=== PATIENT | female | born 2000 | race Hispanic/Latino ===

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

== ENCOUNTER → 2023-02-05 | Outpatient (CLI) | payer MEDICAID | END | disposition home or self-care (01) | LOC: ICE 22:56 | PROVIDERS: ATTEND Hospitalist | DX: Z20.822 Contact with and (suspected) exposure to COVID-19 (principal) | CPT/HCPCS: 87635; C9803 ==

== ENCOUNTER 2023-03-14 04:23 | Emergency (ER) | payer MEDICAID ==
[~2023-03-14] VITALS: Ht 162.6 cm; Wt 88.5 kg
[2023-03-14 04:52] LABS: BASOPHILS % (AUTO) 0.1 % (0.0-5.0); EOSINOPHILS % (AUTO) 1.6 % (0.0-8.0); HEMATOCRIT 40.6 % (36-48); MEAN CORPUSCULAR HEMOGLOBIN 27.5 pg (27.0-33.0); MEAN CORPUSCULAR VOLUME 83.2 fL (80-100); MONOCYTES % (AUTO) 6.8 % (3.0-13.0); NEUTROPHILS % (AUTO) 66.2 % (40.0-77.0); PLATELET COUNT (AUTO) 253 K/uL (130-400); RED BLOOD CELL COUNT(AUTO) 4.88 MIL/uL (4.00-5.50); RED CELL DISTRIBUTION WIDTH 13.1 % (11.0-15.5); WHITE BLOOD COUNT (AUTO) 9.3 K/uL (4.8-10.8)
[2023-03-14 05:04] LABS: CREATININE 0.8 mg/dL (0.5-1.5); POTASSIUM 3.5 mmol/L (3.5-5.1)
[2023-03-14 05:10] LABS: TOTAL PROTEIN, SERUM 7.7 g/dL (6.0-8.3)
[2023-03-14] MEDS ORDERED: LIDOCAINE HCL 2% VISCOUS 15 ML UDCUP PO ONE (06:00)
[2023-03-14] MEDS ORDERED: MAG/ALUM/SIMETH 30 ML UDCUP PO ONE (06:00)
[2023-03-14] MEDS ORDERED: LIDOCAINE HCL 2% VISCOUS 15 ML UDCUP ONE (06:02)
[2023-03-14] MEDS ORDERED: MAG/ALUM/SIMETH 30 ML UDCUP ONE (06:02)
[2023-03-14] MEDS ORDERED: ONDANSETRON 4MG INJ ONE (06:03)
[2023-03-14] MEDS ORDERED: ONDANSETRON 4MG INJ IVP ONE (06:30)
[2023-03-14] MEDS ORDERED: OMEP40CA21 PO (06:38)
[2023-03-14] MEDS ORDERED: IOHEXOL-350 75 ML VIAL IV ONE (06:56)
[2023-03-14 09:01] VITALS: BP 109/66
== END 2023-03-14 09:01 | disposition home or self-care (01) ==
LOC: EDH 04:23
DX: R07.89 Other chest pain (principal); Z90.49 Acquired absence of other specified parts of digestive tract
CPT/HCPCS: 99285; 96374; 71270; 76705; 71045; 84484 ×2; 80053; 83880; 84703; 83690; 85025; 85378; 36415; 93005; J2405; Q9967

== ENCOUNTER 2023-03-22 20:19 | Emergency (ER) | payer MEDICAID ==
[~2023-03-22] VITALS: Ht 162.6 cm; Wt 89.8 kg
[~2023-03-22 20:19] MED LIST: OMEP40CA21 PO
[2023-03-22 20:21] VITALS: BP 156/98
== END 2023-03-22 21:34 | disposition home or self-care (01) ==
LOC: EDH 20:19
DX: F41.9 Anxiety disorder, unspecified (principal); Z90.89 Acquired absence of other organs
CPT/HCPCS: 93005